=== PATIENT | female | born 2005 | race African-American/Black ===

== ENCOUNTER 2023-08-13 14:50 | Emergency (ER) | payer OTHER, SELFPAY ==
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
[2023-08-13 14:54] VITALS: BP 133/61; PULSE 93; RESP 16; TEMP 36.4; O2SAT 99
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
== END 2023-08-13 15:58 | disposition home or self-care (01) ==
PROVIDERS: Emergency Provider Nurse Practitioner Family
DX: S99.912A Unspecified injury of left ankle, initial encounter (principal); V43.02XA Car driver injured in collision with other type car in nontraffic accident, initial encounter
CPT/HCPCS: 73610; 99283